=== PATIENT | female | born 1975 | race Caucasian/White ===

== ENCOUNTER → 2022-07-23 | Outpatient (CLI) | payer SELFPAY ==
--- NOTE | 2022-07-23 18:19 | US_ITS ---
STUDY: THYROID ULTRASOUND REASON FOR EXAM: Female, 46 years old. NODULEs TECHNIQUE: Ultrasound evaluation of the thyroid was performed with real-time and static adrian-scale imaging. COMPARISON: None. FINDINGS: RIGHT LOBE: The right lobe of the thyroid gland measures 5.7 x 2.6 x 1.6 cm. There is a homogeneous echotexture. There is 3.6 x 2.3 cm isoechoic partially cystic lobulated mass in the mid aspect. There are 1.6 x 1.3 and 1.2 x 1.2 cm isoechoic partially cystic nodules. LEFT LOBE: The left lobe of the thyroid gland measures 5.9 x 1.8 x 1.6 cm. There is a homogeneous echotexture. There are multiple, at least 3, isoechoic and echogenic partially cystic nodules measuring 1.8 x 1.1, 1.1 x 1.0, and 0.8 x 0.8 cm. ISTHMUS: The isthmus measures 0.2 cm. The regional lymph nodes are normal. US/Thyroid IMPRESSION: Diffuse multinodular goiter. Dominant lesion on the right. Biopsy recommended. Electronically Signed: Harjinder Kwong MD at 19:12 EST ,
== END | disposition home or self-care (01) ==
LOC: US 18:17
PROVIDERS: Visit Provider Family Medicine
DX: E04.1 Nontoxic single thyroid nodule (principal)
CPT/HCPCS: 76536